=== PATIENT | male | born 1985 | race Caucasian/White ===

== ENCOUNTER 2020-11-15 00:17 | Observation (INO) | payer BC ==
[~2020-11-15] VITALS: Ht 182.9 cm; Wt 88.6 kg
[2020-11-15] VITALS (11 sets, daily range): BP systolic 103–150; BP diastolic 62–85; PULSE 57–73; TEMP 97.8–98.9
[2020-11-15 00:53] LABS: HEMATOCRIT 40.8 % (42.0-52.0); HEMOGLOBIN 13.9 g/dl (13.5-18.0); MEAN CELL VOLUME 88 fl (80.0-100.0); MEAN CORPUSCULAR HEMOGLOBIN 30 pg (27.0-31.0); MEAN CORPUSCULAR HGB CONC 34 g/dl (33.0-37.0); MEAN PLATELET VOLUME 10.4 fl (7.4-10.4); PLATELET COUNT 280 K/mm3 (130-400); RED BLOOD COUNT 4.63 M/mm3 (4.20-5.60); REDCELL DISTRIBUTION WIDTH-CV 11.8 % (11.5-14.5)
[2020-11-15 01:01] LABS: ALANINE AMINOTRANSFERASE 18 U/L (4-49); ALBUMIN 4.6 gm/dL (3.5-5.0); ALKALINE PHOSPHATASE 63 U/L (50-136); ANION GAP 13 mmol/L (7-16); AST,SGOT 33 U/L (15-37); BILIRUBIN,TOTAL 0.6 mg/dL (0.0-1.0); BLOOD UREA NITROGEN 14 mg/dL (9-20); CALCIUM 9.2 mg/dL (8.4-10.2); CARBON DIOXIDE 20 mmol/L (22-30); CHLORIDE 102 mmol/L (98-107); CREATININE, serum 0.86 (0.66-1.25); GLUCOSE 134 mg/dL (74-106); LIPASE 105 U/L (23-300); POTASSIUM 4.2 mmol/L (3.4-5.0); SODIUM 134 mmol/L (137-145); TOTAL PROTEIN 8.1 gm/dL (6.4-8.2)
[2020-11-15 01:07] LABS: BAND 5 % (0-10); INR 1.2 (0.8-3.0); LYMPHOCYTE 5 % (20.0-51.0); NEUTROPHILS 88 % (42.0-75.2); PLATELET ESTIMATE NORMAL (NORMAL); PROTHROMBIN TIME 13.8 SECONDS (9.7-12.8)
[2020-11-15 01:10] LABS: PARTIAL THROMBOPLASTIN TIME 33.5 SECONDS (26.0-37.0)
[2020-11-15 01:17] LABS: TROPONIN-I < 0.012 ng/mL (0.000-0.035)
--- NOTE | 2020-11-15 03:35 | NUR ---
ARRIVES VIA W/C TO ROOM 328.
--- NOTE | 2020-11-15 04:00 | NUR ---
PT RATES PAIN 8/10 TO RUQ. ATTEMPTED TO CONNECT IVF TO LEFT AC SITE, NOTED ARM TO BE GROSSLY INFILTRATED. STARTED NEW IV TO RT WRIST #20 INSYTE ON FIRST ATTEMPT. CONNECTED IVF AT THIS TIME.
--- NOTE | 2020-11-15 04:21 | NUR ---
ADMISSION QUESTIONS COMPLETED. MEDICATED WITH FENTANYL 50MCG IV AT THIS TIME.
--- NOTE | 2020-11-15 05:00 | NUR ---
PT REPORTS GOOD RELIEF WITH FENTANYL.
--- NOTE | 2020-11-15 06:36 | NUR ---
MEDICATED WITH MORPHINE 2MG IVP FOR PAIN 02/22.
--- NOTE | 2020-11-15 07:35 | NUR ---
Pt assessment complete. Pt is laying in bed moving a lot appears to be uncomfortable. Reports R sided abdominal pain /, PRN pain meds administered. Pt denies nausea or vomiting at this time. Pt remains NPO, POC discussed with him. IVF infusing into R wrist. No needs at this time. Call light within reach.
--- NOTE | 2020-11-15 11:40 | NUR ---
Several visit attempts; Patient resting, [employer]cer left card offering God's blessings and information letting patient know of the availability of spiritual care at our [facility].
--- NOTE | 2020-11-15 13:01 | NUR ---
Pt left for procedure at this time. is with patient.
--- NOTE | 2020-11-15 14:18 | NUR ---
Nurse Liaison met with the patient and the patient's , Zulema to complete intake. The patient lives independently in [place] with is . The patient denies DME use. The patient's PCP is Dr. Quinones and patient receives medications from [facility]. The patient does not have advanced directives and was not interested in DPOA-HC form at this time. The patient plans to return home with his . *Discharge disposition: Plan is home with
--- NOTE | 2020-11-15 18:20 | NUR ---
Pt able to go longer stretches without pain meds this afternoon. Tried a few bites of applesauce and sips of water, did not take in much as he felt like some pain was coming on as well as the fear of being in pain. Pt will be NPO at midnight. POC discussed with patient. Warm pack and elevation provided to CASSANDRA, s/sx's to watch for discussed with patient. No needs at this time. Call light within reach.
[2020-11-16 01:05] VITALS: BP 128/75; PULSE 61; TEMP 98
[2020-11-16 03:35] VITALS: BP 128/74; PULSE 63; TEMP 97.3
--- NOTE | 2020-11-16 06:34 | NUR ---
NO NEW ISSUES NOTED OR REPORTED BY PATIENT THROUGHOUT THE SHIFT.
[2020-11-16 07:28] LABS: BASO # 0.1 (0.0-0.2); BASO % 0.7 % (0.0-2.0); EOS # 0.2 (0.0-0.7); EOS % 1.8 % (0-4.0); GRAN # 5.2 (1.4-6.5); GRAN % 63.5 % (42.2-75.2); HEMATOCRIT 38.9 % (42.0-52.0); HEMOGLOBIN 12.6 g/dl (13.5-18.0); MEAN CELL VOLUME 93 fl (80.0-100.0); MEAN CORPUSCULAR HEMOGLOBIN 30 pg (27.0-31.0); MEAN CORPUSCULAR HGB CONC 32 g/dl (33.0-37.0); MEAN PLATELET VOLUME 11.6 fl (7.4-10.4); MONO # 0.8 (0.1-0.6); MONO % 9.6 % (1.7-9.3); PLATELET COUNT 228 K/mm3 (130-400); RED BLOOD COUNT 4.18 M/mm3 (4.20-5.60); REDCELL DISTRIBUTION WIDTH-CV 12.2 % (11.5-14.5)
[2020-11-16 07:38] LABS: ALBUMIN 3.5 gm/dL (3.5-5.0); BILIRUBIN,TOTAL 1.1 mg/dL (0.0-1.0); CALCIUM 8.4 mg/dL (8.4-10.2); CREATININE, serum 1.18 (0.66-1.25); MAGNESIUM 1.9 mg/dL (1.6-2.3); POTASSIUM 3.8 mmol/L (3.4-5.0); TOTAL PROTEIN 6.4 gm/dL (6.4-8.2)
[2020-11-16 08:00] VITALS: BP 130/74; PULSE 64; TEMP 98.7
--- NOTE | 2020-11-16 10:00 | NUR ---
Initial visit; Patient thanked Building Mover for looking in on him and stated he is doing a little better. Building Mover offered God's blessings and a get well message.
[2020-11-16 11:55] VITALS: BP 126/74; PULSE 71; TEMP 99.4
[2020-11-16] MEDS ORDERED: NORCO 325 MG-51 TAB PO (14:06)
[2020-11-16] MEDS ORDERED: AMOXICILLIN 8751 TAB PO (14:07)
[2020-11-16] MEDS ORDERED: PROTONIX 40MG T40 MG PO (14:08)
[2020-11-16] MEDS ORDERED: ZOFRAN ODT4 MG PO (14:09)
[2020-11-16] MEDS ORDERED: CARAFATE S1 GM/10 ML PO (14:09)
[2020-11-16 16:00] VITALS: BP 113/67; PULSE 68; TEMP 98.7
--- NOTE | 2020-11-16 16:40 | NUR ---
Discharge instructions reviewed with patient, verbalized understanding. Discharged via wheelchair to auto/home with spouse at 1635.
== END 2020-11-16 16:35 | disposition home or self-care (01) ==
LOC: COL.ER 00:17 → SURG 01:43 → MEDICAL 01:43 → SURG 01:44
PROVIDERS: Emergency Medicine; Internal Medicine; ADMIT Hospitalist
DX: K29.60 Other gastritis without bleeding (principal); K92.0 Hematemesis; K92.1 Melena; K80.20 Calculus of gallbladder without cholecystitis without obstruction; E87.1 Hypo-osmolality and hyponatremia; D72.0 Genetic anomalies of leukocytes; R13.10 Dysphagia, unspecified; D72.829 Elevated white blood cell count, unspecified; Z79.899 Other long term (current) drug therapy
CPT/HCPCS: 99239; C9113; G0378; J2270; J2405; J2543; J2704; J3010; J7030; J7042; Q9967

== ENCOUNTER 2020-12-07 08:35 | Day surgery (SDC) | payer BC ==
[~2020-12-07] VITALS: Ht 185.4 cm; Wt 86.0 kg
[2020-12-07] VITALS (9 sets, daily range): BP systolic 119–126; BP diastolic 71–789; PULSE 52–71; TEMP 97.7
[~2020-12-07 08:35] MED LIST: AMOXICILLIN 8751 TAB PO; CARAFATE S1 GM/10 ML PO; NORCO 325 MG-51 TAB PO; PROTONIX 40MG T40 MG PO; ZOFRAN ODT4 MG PO
[2020-12-07] MEDS ORDERED: ALLEGRA ALLERG180 MG PO (09:45)
[2020-12-07] MEDS ORDERED: PROTONIX 40MG T40 MG PO (09:46)
--- NOTE | 2020-12-07 09:50 | NUR ---
TO RM 2 AT 0901- CALL LIGHT IN REACH
[2020-12-07] MEDS ORDERED: MOTRIN 600600 MG/TAB PO (12:57)
[2020-12-07] MEDS ORDERED: NORCO 325 MG-51 TAB PO (12:58)
--- NOTE | 2020-12-07 13:35 | NUR ---
TO RM 2 PER CART FROM PACU. ALERT ORIENTED X3, TALKING TO STAFF. C/O PAIN 3/10 AND DENIES NAUSEA. INCISIONS CLEAN DRY INTACT WITH SKIN ADHESIVE.
--- NOTE | 2020-12-07 13:50 | NUR ---
RECEIVED WATER AND TAKING SIPS.
--- NOTE | 2020-12-07 14:05 | NUR ---
CONTINUES TO C/O MILD PAIN AND NAUSEA. PATIENT BELTCHING.
--- NOTE | 2020-12-07 14:20 | NUR ---
RECEOVED APPLESAUCE AND CRACKERS.
--- NOTE | 2020-12-07 14:45 | NUR ---
C/O INCREASED PAIN 01/22 - RECEIVED NORCO 5MG ORDERED
--- NOTE | 2020-12-07 14:50 | NUR ---
C/O INCREASED PAIN 5/10.
--- NOTE | 2020-12-07 15:55 | NUR ---
PATIENT STATED THE PAIN MED HELPED AND WAS ABLE TO GET UP TO WALK TO THE BATHROOM.
--- NOTE | 2020-12-07 16:00 | NUR ---
AMBULATED TO BATHROOM. VOIDED AND AMBULATED BACK TO .
--- NOTE | 2020-12-07 16:15 | NUR ---
RECEOVED DISCHARGE INSTRUCTIONS AND VERBALIZED UNDERSTANDING. DISCONTINUED IV AND INT- CATHETER INTACT. PATIENT CALLED FOR RIDE HOME PATIENT GETTING DRESSED.
--- NOTE | 2020-12-07 16:35 | NUR ---
DISCHARGED PER WC BY NURSING STAFF TO PRIVATE CAR IN CARE OF SUJIT.
== END 2020-12-07 16:45 | disposition home or self-care (01) ==
LOC: SDCO 08:35
DX: K80.12 Calculus of gallbladder with acute and chronic cholecystitis without obstruction (principal); Z20.822 Contact with and (suspected) exposure to COVID-19
CPT/HCPCS: J0690; J1885; J2405; J2704; J3010; J7120